=== PATIENT | male | born 1965 | race Asian ===

== ENCOUNTER 2017-02-25 17:57 | Emergency (ER) | payer SELFPAY ==
[~2017-02-25] VITALS: Ht 175.3 cm; Wt 77.7 kg
[2017-02-25] MEDS ORDERED: IBUPROFEN 800 MG TABLET PO ONE (20:15)
[2017-02-25 20:25] VITALS: BP 144/78
== END 2017-02-25 20:46 | disposition home or self-care (01) ==
LOC: EMS 20:44
DX: T16.2XXA Foreign body in left ear, initial encounter (principal); F17.210 Nicotine dependence, cigarettes, uncomplicated; X58.XXXA Exposure to other specified factors, initial encounter; Y93.89 Activity, other specified; Y92.89 Other specified places as the place of occurrence of the external cause; Y99.8 Other external cause status
CPT/HCPCS: 99282

== ENCOUNTER 2023-08-24 06:36 | Emergency (ER) | payer MEDICAID ==
[~2023-08-24] VITALS: Ht 167.6 cm; Wt 82.0 kg
[~2023-08-24 06:36] MED LIST: BACTDSB PO
[2023-08-24 06:42] VITALS: BP 139/73; PULSE 88; RESP 16; TEMP 98
== END 2023-08-24 08:49 | disposition left against medical advice (07) ==
LOC: EMS 06:36
DX: B86 Scabies (principal); Z53.21 Procedure and treatment not carried out due to patient leaving prior to being seen by health care provider